=== PATIENT | male | born 1955 | race Caucasian/White ===

== ENCOUNTER 2022-10-27 10:00 | Observation (INO) ==
--- NOTE | 2022-10-19 15:44 | PAT Medication Instructions ---
Medication Instructions Date of Service October 19, 2022 Home Medications Medication Instructions Recorded pen needle, diabetic 32 gauge x #100 ea 06/25/21" (BD Ultra-Fine Mariann Pen Needle) metformin 1,000 mg tablet 1,000 mg PO BID #180 tabs 05/15/22 atorvastatin 40 mg tablet 40 mg PO DAILY #90 tabs 08/11/22 semaglutide 7 mg tablet (Rybelsus) 7 mg PO DAILY #30 tabs 09/10/22 metformin 1,000 mg tablet 1,000 mg PO BID atorvastatin 40 mg tablet 40 mg PO DAILY semaglutide 7 mg tablet (Rybelsus) 7 mg PO DAILY Continue as directed semaglutide 7 mg tablet (Rybelsus) 7 mg PO DAILY DO NOT take the morning of surgery metformin 1,000 mg tablet 1,000 mg PO BID Take morning of surgery With a small sip of water, OTHERWISE NOTHING TO EAT OR DRINK AFTER MIDNIGHT: atorvastatin 40 mg tablet 40 mg PO DAILY Take evening before surgery metformin 1,000 mg tablet 1,000 mg PO BID Other Notes If you have any questions please call us at [phone] or [phone] or [phone] or [phone]
--- NOTE | 2022-10-21 08:36 | Anesthesiology Consultation ---
Date of Service October 21, 2022 Assessment & Plan (1) Encounter for pre-operative examination: - COVID screening: Per assessment on 10/21: No known COVID-19 positive contacts or current COVID-19 related symptoms. Travel screen negative. At surgeon discretion if preop Covid testing being done. - Check BSG AM DOS - Outpatient joint assessment: Pt currently scheduled for inpatient pathway. If surgeon requests review for outpatient joint pathway, patient is an acceptable candidate for outpatient joint program from anesthesia standpoint pending confirmed EKG findings. - Preop EKG: Unconfirmed EKG notes TWA, consider inferior ischemia. Awaiting confirmed EKG interpretation. Patient aware of possibility of need for preop cardiac or medical evaluation which will be determined based on confirmed EKG findings. 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 Awaiting review of confirmed preop testing (EKG). 10/22/22= Preop EKG 10/21/22= NSR at 67bpm. T wave abnormality, consider inferolateral ischemia. (Pt was scheduled to see cardio 10/23/22- patient aware) Awaiting cardio clearance 10/22/22 Chart Review Chart Review: Pending: Refer to Additional Notes / Consult section (pending cardio clearance 10/22/22) and Patient seen in Pre Admission Testing Teaching & Discussion Pre-Anesthesia Teaching/Discussion Notes: Instructed NPO after midnight before surgery,except medications with 15 cc of water. Medication instructions provided according to the PAT guidelines. History Surgery Operation Date: 10/27/22 12:30 Proposed Procedures p Left Total Knee Arthroplasty - Rene Mehta MD Height/Weight Height: 6 ft 1 in Weight: 114.9 kg Allergies Allergy/AdvReac Type Severity Reaction Status Date / Time No Known Allergies Allergy Verified 09/10/22 08:52 Medications Home Medications Medication Instructions Recorded Confirmed Last Taken pen needle, diabetic 32 gauge x #100 ea 06/25/21 09/10/22 Unknown " (BD Ultra-Fine Mariann Pen Needle) atorvastatin 40 mg tablet 40 mg PO DAILY #90 tabs 08/11/22 10/19/22 Unknown semaglutide 7 mg tablet (Rybelsus) 7 mg PO DAILY #30 tabs 09/10/22 10/19/22 Unknown metformin 1,000 mg tablet 1,000 mg PO DAILY 10/21/22 10/21/22 Unknown Past Medical History Medical History Diabetes mellitus NIDDM Hyperlipidemia Localized osteoarthritis of knees, bilateral Obesity Exercise / Class Metabolic Activity III < 4 Walking/Shop/Light housework Past Family History Family History Father Lymphoma Mother Diabetes Heart disease Other No family history of adverse response to anesthesia Past Surgical History Surgical History H/O retained foreign body fully removed splinter removed from the foot with sedation History of endoscopic sinus surgery Age 12 (for nose bleeds) Past Anesthesia History No Hx of Anesthesia Complications and No Family Hx of Anesthesia Complications History of PONV No Hx of PONV and No Hx of Motion Sickness Social History Smoking Status: Former smoker Do You Dip or Chew Tobacco: No Smoking End Date: "a long time ago" Hx Alcohol Use: Yes alcohol intake frequency: holidays/special occasions only Hx Substance Use: No substance use type: does not use Review of Systems Patient denies chest pain, shortness of breath, fever, chills, cough, wheezing, palpitations. Physical Exam Vital Signs VITALS BP 115/75 P 76 TEMP 98.6 SP02 95%RA RESP 16 PHYSICAL Full cervical extension range of motion. Full TMJ range of motion. TMD 3.5 finger breaths Mallampati Score 2 Dentition: + missing sides/molars Lungs: clear throughout to auscultation Cardiac: regular rate and rhythm, no murmurs noted Spine: normal Carotid arteries: negative bruit Extremities: no edema Lab Results Anesthesia Preop Results Results Anesthesia Widget: WBC 5.04 K/ul (4.8-10.8) 10/21/22 Hgb 15.4 g/dl (14.0-18.0) 10/21/22 Hct 45.3 % (42.0-52.0) 10/21/22 Plt 171 K/uL (130-400) 10/21/22 Na 139 mmol/L (136-145) 10/21/22 K 3.8 mmol/L (3.5-5.1) 10/21/22 Cl 107 mmol/L (98-107) 10/21/22 CO2 27 mmol/L (21-32) 10/21/22 BUN 19 mg/dl (6-23) 10/21/22 Creat 0.77 mg/dl (0.6-1.4) 10/21/22 Glucose Level 161 mg/dl (70-99(Fasting)) H 10/21/22 PT 10.3 Seconds (9.0-12.0) 10/21/22 PTT 26.9 Seconds (21.0-31.0) 10/21/22 INR 1.0 (0.9-1.1) 10/21/22 HA1c 7.0 % (4.5-5.6) H 10/21/22 Blood Type O Positive 10/21/22 Antibody Screen NEGATIVE 10/21/22 Testing Electrocardiogram Date: 10/21/22 NSR at 67bpm. TWA, consider inferior ischemia. unconfirmed report. Chest X-Ray Date: 10/21/22 FINDINGS: PA and lateral chest radiographs are obtained. No prior studies are available for comparison at the time of dictation. The cardiomediastinal silhouette is unremarkable. The lungs and pleural spaces are clear. There is no pneumothorax. The bony thorax appears intact. IMPRESSION: No active disease in the chest. COVID-19 Risk Screen Screening Information COVID-19 Screen Date: 10/21/22 Exposure 21 Days Family/Household +COVID Last 21 Days: No Exposure 10 Days Any COVID Exposure Last 10 Days: No Symptoms Last 10 Days Experienced COVID Sx Last 10 Days: No + COVID 0-90 Days COVID + in Last 0-90 Days: No
[~2022-10-27 10:00] MED LIST: ACETAMINOPHEN 500 MG TAB PO SCH; BUPIVACAINE 0.5 % 5 MG/1 ML PF 10ML VIAL ONE; BUPIVACAINE LIPOSOME/PF 266 MG, BUPIVACAINE/EPINEPHRINE 50 ML, SODIUM CHLORIDE 0.9% 30 ... INFIL SCH; CeleBREX 200 MG CAP PO SCH; FAMOTIDINE 20 MG TAB PO SCH; LR 500ML BOLUS, THEN 15ML/HR IV SCH; LR 60ML/HR IV SCH; METOCLOPRAMIDE HCL 10 MG TABLET PO SCH; ROPIVACAINE 0.5% 5 MG/ML 30 ML VIAL ONE; Scopolamine 1 MG TDSY TD SCH; TRANEXAMIC ACID 1,000 MG **IV Intra-op IV SCH; ceFAZolin 2000MG 2,000 MG/15 ML SYR IV SCH
--- NOTE | 2022-10-27 11:25 | History & Physical Bridge Note ---
Date of Service October 27, 2022 History & Physical Bridge Note I have examined the patient, reviewed the History & Physical and in the interval since the performance of the History & Physical I have noted the following changes of clinical significance: no changes noted
[2022-10-27] MEDS ORDERED: MIDAZOLAM HCL 1 MG/ML 2ML VIAL ONE (12:08)
[2022-10-27] MEDS ORDERED: fentaNYL citrate 100 MCG/2 ML VIAL ONE (12:09)
[2022-10-27] MEDS ORDERED: LIDOCAINE 2% MPF LOCAL 5 ML VIAL INFIL ONE (12:10)
[2022-10-27] MEDS ORDERED: PROPOFOL IV EMULSION 10 MG/ML 20 ML VIAL IV ONE (12:10)
[2022-10-27] MEDS ORDERED: ONDANSETRON INJ 2 MG/ML 2 ML VIAL ONE (13:00)
[2022-10-27] MEDS ORDERED: BUPIVACAINE 0.25% 30 ML VIAL ONE (13:27)
[2022-10-27] MEDS ORDERED: BUPIVACAINE LIPOSOME 1.3% 266 MG/20 ML VIAL ONE (13:27)
[2022-10-27] MEDS ORDERED: SODIUM CHLORIDE 0.9% PF 50 ML VIAL ONE (13:27)
[2022-10-27] MEDS ORDERED: EPINEPHrine INJ 1 MG/ML AMP ONE (13:28)
[2022-10-27] MEDS ORDERED: ePHEDrine sulfate 50 MG/ML AMP ONE (13:42)
[2022-10-27] MEDS ORDERED: PHENYLEPHRINE HCL 10 MG/ML VIAL ONE (13:42)
[2022-10-27] MEDS ORDERED: fentaNYL citrate 100 MCG/2 ML VIAL IV PRN (13:47)
[2022-10-27] MEDS ORDERED: ePHEDrine sulfate 50 MG/ML AMP IV PRN (13:47)
[2022-10-27] MEDS ORDERED: ATROPINE SULFATE 0.1 MG/ML 10ML SYR IV PRN (13:47)
[2022-10-27] MEDS ORDERED: ONDANSETRON INJ 2 MG/ML 2 ML VIAL IV PRN ×2 (13:47→16:26)
--- NOTE | 2022-10-27 15:33 | Operative Report ---
PG Post Operative Report Pre & Post Diagnosis Operation Date: 10/27/22 12:30 Pre-Op Diagnosis: Left Knee Degenerative Joint Disease Post-Op Diagnosis: Left Knee Degenerative Joint Disease I identified the patient and participated in the time-out.: Yes Procedure Operation Date: 10/27/22 12:30 Actual Procedures p Left Total Knee Arthroplasty(Left) - Rene Mehta MD Surgeon Rene Mehta MD Bottom Turning Lathe Turner Luis Green PA-C Estimated Blood Loss 50 Findings Consistent with Post-Op Diagnosis Operative findings revealed of full-thickness cartilage loss of the entire medial compartment. There is no eburnation but full-thickness cartilage loss. The rest of his knee look pretty good. Fairly mild degenerative changes in the patellofemoral and lateral compartments. Moderate-sized joint effusion. Varus deformity to his knee. Small osteophytes medially. Specimens Left knee sent for pathology. Drains None Anesthesia Type Spinal MAC Complications none Disposition Accompanied Patient To Recovery: No Indications Patient is a 67-year-old gentleman said a fairly long history of bilateral knee pain discomfort left side greater than right. Is been through extensive conservative treatment over the years which become less successful over time. He was strongly desiring a knee replacement surgery. He had exhausted all conservative care. Description of Procedure Operative implants consist of: 1 Biomet Vanguard size 75 left posterior stabilized femoral component. 2. Biomet size 79 tibial tray. 3. 10 mm posterior stabilized polyethylene insert. 4. 31 x 8 all poly patella. The patient was taken the operating, identified, and placed on the operating table supine position. All contact areas were appropriately padded. IV antibiotics tried by anesthesia team. A spinal anesthetic and abductor canal block had been provided in the holding area. Ferris catheter was placed in sterile fashion. A left thigh turn was then placed in the left lower extremity was then prepped and draped in the usual sterile fashion. The left leg was elevated and exsanguinated with use of an Esmarch in terms playset 300 mmHg. An anterior approach left knee was then performed to longitudinal incision centered over the patella. Sharp dissection was carried through subcutaneous tissue down the extensor mechanism. A medial parapatellar arthrotomy incision was made. Some subperiosteal dissection was carried out medially. The fat pad was dissected from Neath patella tendon. Lateral patellofemoral ligament was released. Patella subluxated laterally and the knee was flexed. The osteophytes taken off distal femur. The ACL and PCL were then released from the distal femur and the tibia subluxated anteriorly. The external tibial alignment jig was then placed in the interface the tibia and adjusted 14 mm medially. Proximal tibial cut was made to take about 3 to 4 mm of bone from the medial side as he did not have much in the way of bony wear. The tibia sized to a size 79. Attention drawn the femur. The distal femur during the sharp drill. Intramedullary canal was suction. A left 6 degree valgus cutting guide was placed. Distal femoral cutting block was pinned in place. Distal femoral cut was made to take an additional 3 mm bone off distal femur. Femur was then sized to a size 75. The AP cutting block was pinned parallel to the epicondylar axis which was 5 degrees of external rotation. The anterior cut, anterior chamfer, posterior cut, posterior chamfer cuts were made for the box cutting guide was placed in just slight lateral and the box cut was made. The knee was flexed. The remnants of the medial and lateral menisci were excised. The osteophytes taken off the posterior aspect the femur. A trial femoral component was placed. Tibial tray was pinned in maximum external rotation and the drill and stem punch were used to create defect in proximal tibia for the tibial tray. The knee was then trialed and the 10 mm insert fit most appropriately. Attention drawn the patella. The patella was cleaned of all soft tissues. Patella thickness measured 28 mm in thickness was cut down to 15. Was sized to a size 31 patella. The lug holes were drilled for 31 patella. Lateral osteophytes removed. Patella button was placed. Knee was taken through range of motion patella tracked nicely with no thumbs test. Attention drawn to placing permanent components. All trial components were removed. Bone plug was placed in the distal femur limit blood loss. Double batch Palacos G cement was mixed. Biomet Vanguard size 75 left posterior stabilized femoral component, size 79 tibial tray, 10 mm posterior stabilized polyethylene insert, and a 31 x 8 all Paller patella then cemented in place. Knee was brought out in full extension till cement hardened. Final cement check was then performed. Pericapsular tissues were injected with total 100 cc of combination of 20 cc of Exparel, 30 cc of normal saline, 50 cc of quarter percent Marcaine with epinephrine. Patient did receive 1 g tranexamic acid. The tourniquet was then let down for final turn time 61 minutes. Hemostasis assured use electrocautery. Extensor mechanism then closed with combination 1 PDS suture #1 Vicryl suture in [id number] fashion. The extensor mechanism was checked and found to be intact the subcutaneous tissues then closed with 2 Dexon suture in a buried interrupted fashion skin was closed skin martha. Leg was then cleaned and dried and a sterile dressing was Xeroform, 4 fours, sterile ABD pad, sterile cast padding, Bill bandage was applied. The patient then transferred to the recovery room in stable condition. The patient tolerated procedure well and there were no complications. Luis Green, my physician mechanic assistant, was present for the entire procedure. His assistance was essential and required for appropriate patient positioning, prepping and draping, surgical exposure, performing the technical details of the operation, placement the implants, closure of the wound, and placement of the sterile bandage. I attest to the content of the Intraoperative Record and any orders documented therein. Any exceptions are noted below.
--- NOTE | 2022-10-27 16:06 | XRay Report ---
XR knee LT 1 or 2V routine CLINICAL HISTORY: Surgical Post Op TECHNIQUE: 2 views of the left knee were obtained. Comparison: Comparison is made to knee radiograph 08/20/2022 FINDINGS: Patient is status post total knee arthroplasty with expected postsurgical changes including soft tiss ue swelling and subcutaneous emphysema. No periarticular lucency or hardware fracture is seen. IMPRESSION: Expected postoperative appearance status post placement of total knee arthroplasty. ACT 112: Negative or not required by law. Electronically signed by: Tor Mccord M.D. 10/27/2022 4:05 PM
[2022-10-27] MEDS ORDERED: GLUCOSE 40% GEL 15 GM TUBE PO PRN (16:26)
[2022-10-27] MEDS ORDERED: GLUCOSE 10 TAB/TUBE PO PRN (16:26)
[2022-10-27] MEDS ORDERED: NALOXONE HCL 0.4 MG/1 ML VIAL/CARP IV PRN (16:26)
[2022-10-27] MEDS ORDERED: HYDROmorphone INJ 0.5 MG/0.5 ML SYR IV PRN (16:26)
[2022-10-27] MEDS ORDERED: GLUCAGON FOR INJ 1 MG VIAL SQ PRN (16:26)
[2022-10-27] MEDS ORDERED: CARBOHYDRATES FOR HYPOGLYCEMIA PO PRN (16:26)
[2022-10-27] MEDS ORDERED: MAGNESIUM HYDROXIDE SUSP 30 ML UDC PO PRN (16:26)
[2022-10-27] MEDS ORDERED: ALUMINUM/MAGNESIUM SUSP 30 ML UDC PO PRN (16:26)
[2022-10-27] MEDS ORDERED: bisacodyL 10 MG SUPP PR PRN (16:26)
[2022-10-27] MEDS ORDERED: DEXTROSE 50% 50 ML SYRINGE IV PRN (16:26)
[2022-10-27] MEDS ORDERED: PHARMACY GLYCEMIC MGMT CONSULT PRN (16:26)
[2022-10-27] MEDS ORDERED: METOCLOPRAMIDE HCL INJ 5 MG/ML 2 ML VIAL IV PRN (16:26)
--- NOTE | 2022-10-27 17:02 | Anesthesiology Progress Note ---
Date of Service October 27, 2022 Anesthesia Post Procedure Vital Signs Vital Signs: Temp Pulse Pulse Resp BP Pulse Ox O2 Del Method 10/27/22 16:28 36.5 C 61 16 132/87 100 Room Air 10/27/22 16:15 36.6 C 61 18 120/71 98 Room Air 10/27/22 15:55 61 14 106/70 100 Oxymask 10/27/22 16:05 36.6 C 62 22 127/74 99 Room Air 10/27/22 15:45 61 13 107/66 100 Oxymask 10/27/22 15:36 36.3 C L 68 14 105/65 98 Oxymask 10/27/22 10:27 36.8 C 76 20 142/84 H 98 Room Air O2 Flow Rate 10/27/22 16:28 10/27/22 16:15 10/27/22 15:55 3 10/27/22 16:05 10/27/22 15:45 5 10/27/22 15:36 7 10/27/22 10:27 Transfer of Care Handoff Completed per policy Notes Mental Status: alert / awake / arousable and participated in evaluation Patient Amnestic to Procedure: Yes Nausea / Vomiting: adequately controlled Pain: adequately controlled Airway Patency, RR, SpO2: stable & adequate BP & HR: stable & adequate Hydration State: stable & adequate Neuraxial Anesthesia: was administered and sensory block is resolving Anesthetic Complications: no major complications apparent and Pt Satisfied with anesthetic care
[2022-10-27] MEDS: SODIUM CHLORIDE 0.9% 1000ML 1,000 ML IV SCH (17:13)
[2022-10-27] MEDS: Scopolamine CHECK PATCH PLACEMENT SCH ×2 (17:14→23:45)
[2022-10-27] MEDS: KETOROLAC TROMETHAMINE 15 MG/ML VIAL IV SCH ×2 (17:14→23:43)
[2022-10-27] MEDS: ceFAZolin 2000MG 2,000 MG/15 ML SYR IV SCH (21:25)
[2022-10-27] MEDS: ASPIRIN 81 MG ECTAB PO SCH (21:26)
[2022-10-27] MEDS: ACETAMINOPHEN 500 MG TAB PO SCH (21:26)
[2022-10-27] MEDS: DOCUSATE SODIUM 100 MG CAP PO SCH (21:28)
[2022-10-27] MEDS ORDERED: TRANEXAMIC ACID / 0.7% NACL 1,000 MG/100 ML BAG IV SCH (21:30)
[2022-10-27] MEDS: INSULIN ASPART PER UNIT SC SCH (21:39)
[2022-10-27] MEDS: SENNA 8.6 MG TAB PO SCH (22:11)
[2022-10-27] MEDS: TAPENTADOL HCL ER 50 MG TABCR PO SCH (22:12)
[2022-10-28] MEDS: SODIUM CHLORIDE 0.9% 1000ML 1,000 ML IV SCH (03:10)
[2022-10-28] MEDS: KETOROLAC TROMETHAMINE 15 MG/ML VIAL IV SCH ×3 (05:56→17:26)
[2022-10-28] MEDS: ACETAMINOPHEN 500 MG TAB PO SCH ×3 (05:57→21:57)
[2022-10-28] MEDS: ceFAZolin 2000MG 2,000 MG/15 ML SYR IV SCH (06:46)
[2022-10-28 07:28] LABS: Hemoglobin 13.1 g/dl (14.0-18.0); Mean Corpuscular Hemoglobin 32.2 pg (25.0-34.0); Mean Corpuscular Hgb Conc 34.5 g/dL (32.0-36.0); Mean Corpuscular Volume 93.4 fL (80.0-100.0); Mean Platelet Volume 10.2 fL (9.4-12.4); Platelet Count 148 K/uL (130-400); RDW Coefficient of Variation 12.5 % (11.5-14.5); RDW Standard Deviation 42.9 fL (36.4-46.3); Red Blood Count 4.07 M/uL (4.70-6.10); White Blood Count 7.82 K/ul (4.8-10.8)
[2022-10-28 07:57] LABS: Calcium 8.1 mg/dl (8.5-10.1); Creatinine Clr Calc Pharmacy 130.6 ml/min; Est GFR (African American) 111.6 ml/min; Est GFR (Non-African American) 96.3 ml/min; Potassium 3.9 mmol/L (3.5-5.1)
--- NOTE | 2022-10-28 08:49 | Pharmacy Report ---
Pharmacy Glycemic Short Note 2 - Date of Service October 28, 2022 - Glycemic Short BSG Results (Last 24 hours): 10/27/22 10/27/22 10/27/22 10:16 15:37 17:20 Glucose POC Glucose 152 H 136 H 116 H 10/27/22 10/28/22 10/28/22 20:45 06:31 08:03 Glucose 144 H POC Glucose 143 H 173 H OUTPATIENT ANTIDIABETIC REGIMEN: * Metformin 1000mg PO BID meals * Semaglutide 7mg PO daily ASSESSMENT: * 67 year old male POD 1 TKA, type 2 DM, A1c 7% on orals as above, no steroids received. * Blood sugars well controlled on NovoLog insulin CF and CR only. * Patient tolerating diet and SCr 0.7, resume home metformin at this time and continue NovoLog at this time. * May be able to discontinue CR if blood sugars trend down below goal. PLAN FOR INPATIENT GLYCEMIC CONTROL: * Hold outpatient Semaglutide diabetes medication * Metformin 1000mg PO BID with meals * Bolus insulin * NovoLog per scale ACHS or Q6hrs while NPO * Goal Range: Low 110 mg/dL - High 140 mg/dL * Correction Factor: 20 mg/dL/unit * Nutritional / Prandial insulin per carb ratio of 1 unit per 7 grams CHO consumed
[2022-10-28] MEDS: INSULIN ASPART PER UNIT SC SCH ×4 (08:54→22:03)
[2022-10-28] MEDS: ASPIRIN 81 MG ECTAB PO SCH ×2 (08:56→21:57)
[2022-10-28] MEDS: ATORVASTATIN 40 MG TAB PO SCH (08:56)
[2022-10-28] MEDS: DOCUSATE SODIUM/SENNA 50/8.6MG TAB PO SCH (08:56)
[2022-10-28] MEDS: TAMSULOSIN HCL 0.4 MG CAP PO SCH (08:57)
[2022-10-28] MEDS: MULTIVITAMIN TAB PO SCH (08:57)
[2022-10-28] MEDS: DOCUSATE SODIUM 100 MG CAP PO SCH ×2 (08:57→21:57)
[2022-10-28] MEDS: Scopolamine CHECK PATCH PLACEMENT SCH (08:59)
[2022-10-28] MEDS: TAPENTADOL HCL ER 50 MG TABCR PO SCH ×2 (09:01→22:03)
[2022-10-28] MEDS: metFORMIN HCL 500 MG TAB PO SCH ×2 (10:12→17:26)
--- NOTE | 2022-10-28 11:13 | Progress Notes ---
DATE OF SERVICE: 10/28/2022 SUBJECTIVE: A 67-year-old gentleman postoperative day 1 from a left knee replacement. He is doing p retty well. When his spinal wore off, he was having some pain, but took some medicine and is doing o gisela. No chest pain or shortness of breath. Not feeling dizzy or lightheaded. OBJECTIVE: VITAL SIGNS: Temperature 37.0. Vital signs are stable. PHYSICAL EXAMINATION: GENERAL: Shows a pleasant middle-aged male. He is sitting up in his bed and looks pretty comfortabl e this morning. LUNGS: Clear to auscultation. HEART: Regular rate and rhythm. ABDOMEN: Soft, nontender, nondistended. EXTREMITIES: Grossly neurovascularly intact except as follows: Examination of the left leg reveals the dressing to be clean, dry and intact. He can dorsiflex and plantarflex his foot appropriately. NEUROLOGIC: He is neurologically intact. LABORATORY DATA: Hemoglobin 13.1. Hematocrit 38.0. Electrolytes are stable. ASSESSMENT: A 67-year-old gentleman postoperative day 1 from left knee replacement, doing pretty wel l. Pain is reasonably well controlled. He is neurologically intact. PLAN: 1. DVT prophylaxis includes thigh-high TEDs, SCDs, and aspirin twice a day. 2. PT/OT, weightbear as tolerated. Left total knee protocol. 3. Pain control, doing okay with current pain regimen. 4. Disposition: He is hoping to go to rehab. We are working on that this morning. His is out of the house most of the day and he does not have any help. He will benefit from a rehab stay. Job ID: [id number]
[2022-10-28] MEDS: oxyCODONE HCL IR 5 MG TAB (IMMEDIATE RELEASE) PO PRN (11:52)
[2022-10-28] MEDS ORDERED: Nursing to Pharmacy Communication SCH (15:45)
[2022-10-28] MEDS: SENNA 8.6 MG TAB PO SCH (21:56)
[2022-10-29] MEDS: KETOROLAC TROMETHAMINE 15 MG/ML VIAL IV SCH ×4 (00:48→13:02)
[2022-10-29] MEDS: ACETAMINOPHEN 500 MG TAB PO SCH ×2 (05:54→13:00)
[2022-10-29] MEDS: oxyCODONE HCL IR 5 MG TAB (IMMEDIATE RELEASE) PO PRN (06:25)
[2022-10-29] MEDS: DOCUSATE SODIUM/SENNA 50/8.6MG TAB PO SCH (08:22)
[2022-10-29] MEDS: ATORVASTATIN 40 MG TAB PO SCH (08:23)
[2022-10-29] MEDS: metFORMIN HCL 500 MG TAB PO SCH (08:23)
[2022-10-29] MEDS: ASPIRIN 81 MG ECTAB PO SCH (08:23)
[2022-10-29] MEDS: MULTIVITAMIN TAB PO SCH (08:23)
[2022-10-29] MEDS: TAMSULOSIN HCL 0.4 MG CAP PO SCH (08:23)
[2022-10-29] MEDS: DOCUSATE SODIUM 100 MG CAP PO SCH (08:24)
[2022-10-29] MEDS: TAPENTADOL HCL ER 50 MG TABCR PO SCH (08:28)
[2022-10-29] MEDS: INSULIN ASPART PER UNIT SC SCH ×2 (08:28→12:56)
--- NOTE | 2022-10-29 13:38 | Progress Notes ---
DATE OF SERVICE: 10/29/2022 SUBJECTIVE: A 67-year-old gentleman postoperative day 2 from a left knee replacement. He is doing p retty well. He did have a little bit of confusion yesterday. The scopolamine patch was discontinued and he seems to be doing better today. He is awake, alert, and oriented. No new complaints. His k nee is sore, but manageable. No chest pain or shortness of breath. Not feeling dizzy or lightheaded . OBJECTIVE: VITAL SIGNS: Temperature 36.9. Vital signs are stable. PHYSICAL EXAMINATION: GENERAL: Shows a pleasant middle-aged male. He is sitting up in his bed and looks pretty comfortabl e. EXTREMITIES: Examination of the left leg reveals the dressing to be clean, dry and intact. He can d orsiflex and plantarflex his foot appropriately. NEUROLOGIC: He is neurologically intact. ASSESSMENT: A 67-year-old gentleman postoperative day 2 from left knee replacement, doing pretty wel l. His pain is controlled. He is looking to go to a half-way facility. PLAN: 1. DVT prophylaxis includes thigh-high TEDs, SCDs, and aspirin twice a day. 2. PT/OT, weightbear as tolerated. Left total knee protocol. 3. Pain control, doing okay with current pain regimen. 4. Disposition: Plan to discharge to a half-way facility today. I believe he has been accep yao and an order has been placed. Job ID: [id number]
--- NOTE | 2022-11-02 06:39 | Discharge Summary ---
Date of Service November 02, 2022 Discharge Data Procedures Performed Operation Date: 10/27/22 12:30 Actual Procedures p Left Total Knee Arthroplasty(Left) - Rene Mehta MD Hospital Course (1) Status post total left knee replacement: This is a 67 year old patient admitted on 10/27/22 and underwent total knee arthroplasty. He tolerated the procedure well and there were no complications. Transferred to the PACU post op and later to the orthopedic floor for further care. He was given ancef for antibiotic prophylaxis. He was also given NARINDER stockings, SCDs, and aspirin for DVT prophylaxis. Hemoglobin, hematocrit, and vital signs were monitored during his hospital stay and remained stable. Did not require any blood transfusions. There were no complications during his hospital stay. By post op day #2 the patient was tolerating a diabetic diet, pain was reasonably controlled with oral pain medicine, and he was participating in physical therapy. On post op day #2 the patient was discharged home and set up with home health care. He was given printed discharge instructions including prescriptions for extra strength tylenol, aspirin, cefadroxil, ketorolac, zofran, senokot, flomax, and oxycodone. Continue physical therapy, weight bearing as tolerated. Continue NARINDER stockings. Follow up approximately 2 weeks post op or sooner if there are problems or concerns. Coding Level of Care Code None Diagnoses Status post total left knee replacement Z96.652
== END 2022-10-29 16:00 ==
LOC: 3E 10:00 → ASU 10:00